=== PATIENT | female | born 1945 | race Caucasian/White ===

== ENCOUNTER 2017-09-16 11:50 | Inpatient (IN) ==
[2017-09-16 12:15] LABS: ABG Base Excess 22 mEq/L (-2 to 3); ABG HCO3 56 mEq/L (21-27); ABG Oxygen Saturation 95 % (95-98); ABG PCO2 131 mmHg (35-45); ABG PH 7.24 pH Units (7.32-7.45); ABG PO2 99 mmHg (85-104); ABG TCO2 60 mEq/L (20-26)
[2017-09-16] MEDS ORDERED: *HR* LORazepam 2 MG/ML VIAL IVP ONE (12:23)
--- NOTE | 2017-09-16 12:24 | Emergency Department Note ---
Disposition Clinical Impression: Congestive heart failure, Hypercapnia Disposition: Admitted As Inpatient Condition: Fair General Adult HPI - General Chief complaint: ED Shortness of Breath/Dyspnea Stated complaint: MEKHI x 2 days Time Seen by Provider: 09/16/17 11:51 Source: EMS Limitations: no limitations Nursing Notes Reviewed: Yes Vital Signs Reviewed: Yes - History of Present Illness Pain Scale: 0 - Related Data Home Medications Medication Instructions Recorded Confirmed Calcium Carbonate/Vitamin D3 2 tab PO DAILY 09/16/17 09/16/17 [Calcium 500 + Vit D 200 Caplet] Furosemide [Lasix] 40 - 80 mg PO DAILY 09/16/17 09/16/17 GlipiZIDE XL (24 HR) [Glucotrol XL] 2.5 mg PO 0800 PRN 09/16/17 09/16/17 Lisinopril 2.5 mg PO DAILY PRN 09/16/17 09/16/17 Metoprolol [Lopressor] 25 mg PO BID 09/16/17 09/16/17 Omeprazole [PriLOSEC] 20 mg PO DAILY 09/16/17 09/16/17 Potassium Chloride [K-Tab ER] 20 meq PO QAM 09/16/17 09/16/17 Rivaroxaban [Xarelto] 20 mg PO DAILY 09/16/17 09/16/17 Tramadol HCl [Ultram] 50 mg PO BID PRN 09/16/17 09/16/17 Allergies Allergy/AdvReac Type Severity Reaction Status Date / Time himalayan salt Allergy Swelling Uncoded 09/16/17 13:25 of Lip/Tongue/Throat Past Medical History - Past Medical History Medical history: Reports: COPD, diabetes, GERD, hyperlipidemia, hypertension, peripheral artery disease Psychiatric history: Reports: no psych history - Social History Smoking Status: Former smoker Smokeless Tobacco Status: No Alcohol use: Reports: none Drug use: Reports: none Physical Exam - General Limitations: no limitations General appearance: alert, in no apparent distress Course Vital Signs Temperature 98.1 F 09/16/17 11:54 Pulse Rate 83 09/16/17 11:54 Respiratory Rate 18 09/16/17 11:54 Blood Pressure 122/72 09/16/17 11:54 O2 Sat by Pulse Oximetry 94 09/16/17 11:54 Temperature 98 F 09/16/17 13:56 Pulse Rate 99 01/02/18 13:07 Respiratory Rate 18 09/16/17 13:56 Blood Pressure 126/71 09/16/17 13:56 O2 Sat by Pulse Oximetry 94 09/16/17 13:07 Oxygen Delivery Oxygen Delivery Bipap Medical Decision Making - MDM Narrative Medical decision making narrative: This documentation is done with the assistance of Dragon dictation. Despite efforts to ensure accuracy, there may be inaccuracies in sucker machine operator or spelling and typographical errors. I examined this patient and my medical decision-making was reviewed with the Resident Physician. I agree with the documented findings, disposition and treatment plan as described except to the extent set forth below. Patient seen and evaluated by Dr. Shakih and myself on arrival with EMS. I agree with his evaluation and management plan, supervised The patient's stay. She states that she has been getting increasing shortness of breath and having confusion per family. This happened in the past when her carbon dioxide levels elevated. She has a history of atrial fibrillation also denies any chest pain at this time. We will place her on BiPAP check labs and reassess. She will need admission. Chest X-Ray 09/16/17 11:51 IMPRESSION: Increased lung markings at the bilateral parahilar regions, may be related to bronchitis versus mild pulmonary vascular congestion. Mild cardiomegaly. D/ / Sae Paniagua MD / Sae Paniagua MD Interpreting Provider: Sae Paniagua MD 1320 hrs.: Family arrives and patient's much more comfortable with the BiPAP and being here. Admit her to the hospital. She is in agreement with plan. Spoke with hospitalist and he is accepted her to the service. Patient's critical care time excluding separately billable procedures is 45 minutes. - Lab Data Result diagrams: 09/16/17 12:39 09/16/17 12:39 Lab Results 09/16/17 09/16/17 09/16/17 Range/Units 12:05 12:39 12:39 WBC 6.5 (4.3-11.1) K/mcL RBC 3.66 L (3.82-4.97) M/mcL Hgb 10.7 L (11.5-15.4) g/dL Hct 37.8 (35.3-44.9) % MCV 103.3 H (83.0-100.0) fL MCH 29.2 (28.0-33.3) pg MCHC 28.3 L (31.6-35.5) g/dL RDW 12.3 (11.5-14.5) % Plt Count 135 L (140-400) K/mcL MPV 9.9 (9.4-12.4) fL Immature Gran % 0.2 (0-4) % Seg Neutrophils % 63.8 % Lymphocytes % 24.3 % Monocytes % 9.2 % Eosinophils % 1.7 % Basophils % 0.8 % Neutrophils # 4.2 (1.6-8.9) K/mcL Lymphocytes # 1.6 (0.6-4.6) K/mcL Monocytes # 0.6 (0.0-1.3) K/mcL Eosinophils # 0.1 (0.0-0.6) K/mcL Basophils # 0.1 (0.0-0.2) K/mcL Platelet Estimate Decreased L (Normal) Hypochromasia Present A (Not Present) PT (9.4-12.1) Seconds INR APTT (26.0-36.0) Seconds ABG pH 7.24 L (7.32-7.45) pH Units ABG pCO2 131 H* (35-45) mmHg ABG pO2 99 (85-104) mmHg ABG HCO3 56 H (21-27) mEq/L ABG Total CO2 60 H (20-26) mEq/L ABG O2 Saturation 95 (95-98) % ABG Base Excess 22 H (-2 to 3) mEq/L O2 Delivery Device Cannula Inspired O2 30.0 (1-15=lpm et38-433=%) Sodium 141 (136-145) mEq/L Potassium 4.1 (3.5-5.1) mEq/L Chloride 90 L (98-107) mEq/L Carbon Dioxide > 45 H* (23-29) mEq/L BUN 20 (8-23) mg/dL Creatinine 0.51 L (0.60-1.20) mg/dL Est GFR ( Amer) > 60 (> 60) Est GFR (Non-Af Amer) > 60 (> 60) BUN/Creatinine Ratio 39 H (6-26) Glucose 104 (70-105) mg/dL Calculated Osmolality 295 (280-300) Calcium 9.9 (8.6-10.3) mg/dL Troponin I (< 0.04) ng/mL B-Natriuretic Peptide (Less than 100) pg/mL Urine Color (Yellow) Urine Clarity (Clear) Urine pH (5.0-8.0) pH Units Ur Specific [place] (1.010-1.025) Urine Protein (Neg-Trace) mg/dL Urine Glucose (UA) (Normal) mg/dL Urine Ketones (Negative) mg/dL Urine Blood (Negative) Urine Nitrite (Negative) Urine Bilirubin (Negative) Urine Urobilinogen (Normal) mg/dL Ur Leukocyte Esterase (Negative) Urine Microscopic RBC (0-3) per hpf Urine Microscopic WBC (0-3) per hpf Ur Squamous Epith Cells (None-Few) per lpf Urine Bacteria (None-Few) per hpf Hyaline Casts (None-Few) per lpf Ur Culture Indicated? (NO) 09/16/17 09/16/17 09/16/17 Range/Units 12:39 12:39 12:39 WBC (4.3-11.1) K/mcL RBC (3.82-4.97) M/mcL Hgb (11.5-15.4) g/dL Hct (35.3-44.9) % MCV (83.0-100.0) fL MCH (28.0-33.3) pg MCHC (31.6-35.5) g/dL RDW (11.5-14.5) % Plt Count (140-400) K/mcL MPV (9.4-12.4) fL Immature Gran % (0-4) % Seg Neutrophils % % Lymphocytes % % Monocytes % % Eosinophils % % Basophils % % Neutrophils # (1.6-8.9) K/mcL Lymphocytes # (0.6-4.6) K/mcL Monocytes # (0.0-1.3) K/mcL Eosinophils # (0.0-0.6) K/mcL Basophils # (0.0-0.2) K/mcL Platelet Estimate (Normal) Hypochromasia (Not Present) PT 20.6 H (9.4-12.1) Seconds INR 1.9 APTT 42.6 H (26.0-36.0) Seconds ABG pH (7.32-7.45) pH Units ABG pCO2 (35-45) mmHg ABG pO2 (85-104) mmHg ABG HCO3 (21-27) mEq/L ABG Total CO2 (20-26) mEq/L ABG O2 Saturation (95-98) % ABG Base Excess (-2 to 3) mEq/L O2 Delivery Device Inspired O2 (1-15=lpm kd18-814=%) Sodium (136-145) mEq/L Potassium (3.5-5.1) mEq/L Chloride (98-107) mEq/L Carbon Dioxide (23-29) mEq/L BUN (8-23) mg/dL Creatinine (0.60-1.20) mg/dL Est GFR ( Amer) (> 60) Est GFR (Non-Af Amer) (> 60) BUN/Creatinine Ratio (6-26) Glucose (70-105) mg/dL Calculated Osmolality (280-300) Calcium (8.6-10.3) mg/dL Troponin I < 0.03 (< 0.04) ng/mL B-Natriuretic Peptide 224 H (Less than 100) pg/mL Urine Color (Yellow) Urine Clarity (Clear) Urine pH (5.0-8.0) pH Units Ur Specific [place] (1.010-1.025) Urine Protein (Neg-Trace) mg/dL Urine Glucose (UA) (Normal) mg/dL Urine Ketones (Negative) mg/dL Urine Blood (Negative) Urine Nitrite (Negative) Urine Bilirubin (Negative) Urine Urobilinogen (Normal) mg/dL Ur Leukocyte Esterase (Negative) Urine Microscopic RBC (0-3) per hpf Urine Microscopic WBC (0-3) per hpf Ur Squamous Epith Cells (None-Few) per lpf Urine Bacteria (None-Few) per hpf Hyaline Casts (None-Few) per lpf Ur Culture Indicated? (NO) 09/16/17 Range/Units 13:16 WBC (4.3-11.1) K/mcL RBC (3.82-4.97) M/mcL Hgb (11.5-15.4) g/dL Hct (35.3-44.9) % MCV (83.0-100.0) fL MCH (28.0-33.3) pg MCHC (31.6-35.5) g/dL RDW (11.5-14.5) % Plt Count (140-400) K/mcL MPV (9.4-12.4) fL Immature Gran % (0-4) % Seg Neutrophils % % Lymphocytes % % Monocytes % % Eosinophils % % Basophils % % Neutrophils # (1.6-8.9) K/mcL Lymphocytes # (0.6-4.6) K/mcL Monocytes # (0.0-1.3) K/mcL Eosinophils # (0.0-0.6) K/mcL Basophils # (0.0-0.2) K/mcL Platelet Estimate (Normal) Hypochromasia (Not Present) PT (9.4-12.1) Seconds INR APTT (26.0-36.0) Seconds ABG pH (7.32-7.45) pH Units ABG pCO2 (35-45) mmHg ABG pO2 (85-104) mmHg ABG HCO3 (21-27) mEq/L ABG Total CO2 (20-26) mEq/L ABG O2 Saturation (95-98) % ABG Base Excess (-2 to 3) mEq/L O2 Delivery Device Inspired O2 (1-15=lpm mn82-437=%) Sodium (136-145) mEq/L Potassium (3.5-5.1) mEq/L Chloride (98-107) mEq/L Carbon Dioxide (23-29) mEq/L BUN (8-23) mg/dL Creatinine (0.60-1.20) mg/dL Est GFR ( Amer) (> 60) Est GFR (Non-Af Amer) (> 60) BUN/Creatinine Ratio (6-26) Glucose (70-105) mg/dL Calculated Osmolality (280-300) Calcium (8.6-10.3) mg/dL Troponin I (< 0.04) ng/mL B-Natriuretic Peptide (Less than 100) pg/mL Urine Color Dark Yellow (Yellow) Urine Clarity Cloudy A (Clear) Urine pH 6.0 (5.0-8.0) pH Units Ur Specific [place] 1.024 (1.010-1.025) Urine Protein Trace (Neg-Trace) mg/dL Urine Glucose (UA) Normal (Normal) mg/dL Urine Ketones Negative (Negative) mg/dL Urine Blood Small H (Negative) Urine Nitrite Positive A (Negative) Urine Bilirubin Small H (Negative) Urine Urobilinogen Normal (Normal) mg/dL Ur Leukocyte Esterase Negative (Negative) Urine Microscopic RBC 5-15 H (0-3) per hpf Urine Microscopic WBC 0-3 (0-3) per hpf Ur Squamous Epith Cells Many H (None-Few) per lpf Urine Bacteria Many H (None-Few) per hpf Hyaline Casts None Seen (None-Few) per lpf Ur Culture Indicated? NO. (NO)
--- NOTE | 2017-09-16 12:29 | Emergency Department Note ---
Disposition Clinical Impression: Hypercapnia Congestive heart failure Qualifiers: Congestive heart failure type: unspecified congestive heart failure type Congestive heart failure chronicity: acute on chronic Qualified Code(s): I50.9 - Heart failure, unspecified Disposition: Admitted As Inpatient Condition: Fair Referrals: NONE,PCP [Primary Care Provider] - Forms: ED Satisfaction Letter Time of Disposition: 13:23 SOB HPI - General Chief Complaint: ED Shortness of Breath/Dyspnea Stated Complaint: MEKHI x 2 days Time Seen by Provider: 09/16/17 11:51 Source: EMS Mode of arrival: EMS Limitations: no limitations Nursing Notes Reviewed: Yes Vital Signs Reviewed: Yes - History of Present Illness Patient presents to the ED with chief complaint of shortness of breath. Patient arrives via EMS and was seen and evaluated upon arrival. According EMS , patient has had trouble breathing for the last few days, has a history of CHF and COPD. Reports she has not been taking her Lasix as prescribed lately. Also has a history of atrial fibrillation. Patient states she has some trouble breathing but otherwise is unable to answer any questions about her medical history. She states that they brought her to the wrong hospital and she normally goes to [facility] however, she is unable to provide us any relevant information. She states we should contact her daughter, but is unsure what her phone number is. - Related Data Allergies Allergy/AdvReac Type Severity Reaction Status Date / Time himalayan salt Allergy Swelling Uncoded 09/16/17 13:25 of Lip/Tongue/Throat Limitations: ROS unobtainable due to patients medical condition Respiratory: Reports: dyspnea Past Medical History - Past Medical History Attestation: Yes The following information was validated with the patient. Source: old records reviewed Medical history: Reports: COPD, diabetes, GERD, hyperlipidemia, hypertension, peripheral artery disease Psychiatric history: Reports: no psych history - Social History Smoking Status: Former smoker Smokeless Tobacco Status: No Alcohol use: Reports: none Drug use: Reports: none Physical Exam - General Limitations: no limitations General appearance: alert, in no apparent distress - Head Head exam: atraumatic, normocephalic, normal inspection - Eye Eye exam: Present: normal appearance, PERRL, EOMI - Neck Neck exam: Present: normal inspection, full ROM, trachea midline - Chest Chest inspection: Present: normal inspection, symmetric chest wall rise - Respiratory Respiratory exam: Present: respiratory distress, other (rales). Absent: normal lung sounds bilaterally, wheezes - Cardiovascular Cardiovascular exam: Present: regular rate, normal rhythm, normal heart sounds - Abdominal Exam Abdominal exam: Present: soft, Non-Tender. Absent: tenderness, distention, guarding, rebound, rigidity - Extremities Exam Extremities exam: Present: pedal edema - Neurological Exam Neurological exam: Present: alert. Absent: oriented X3 (to person and place but not time ) - Psychiatric Psychiatric exam: Present: anxious - Skin Skin exam: Present: warm, dry, intact, normal color Course Course Narrative: Patient presenting with shortness of breath. Has rales on exam peripheral edema concern over a CHF exacerbation. Somewhat confused, so likely has an elevated PCO2. We will get an ABG and go and placed on BiPAP. - Reevaluation(s) Reevaluation #1: PCO2 was quite high, which makes us think that she probably has chronic hypercapnia. She is still mentating fairly well for PCO2 that eye. She is doing much better on BiPAP in her mental status seems to be improving. We will admit her to the hospitalist service. Hospitalist service. Sheila for admission but did ask that we consult pulmonology due to her PCO2 and requiring BiPAP. I do not think she will need intubation. She is tolerating BiPAP well, but we will broaden give him a call and get her admitted. Pulm contacted. No further recommendations. WIll be happy to consult if needed. Patient remains stable. Vital Signs Temperature 98.1 F 09/16/17 11:54 Pulse Rate 83 09/16/17 11:54 Respiratory Rate 18 09/16/17 11:54 Blood Pressure 122/72 09/16/17 11:54 O2 Sat by Pulse Oximetry 94 09/16/17 11:54 Temperature 98.1 F 09/16/17 11:54 Pulse Rate 99 09/16/17 13:07 Respiratory Rate 18 09/16/17 13:07 Blood Pressure 125/91 09/16/17 13:07 O2 Sat by Pulse Oximetry 94 09/16/17 13:07 Oxygen Delivery Oxygen Delivery Bipap Shortness of Breath/Dyspnea - Medical Records Medical records reviewed: Yes I reviewed the patient's medical records. - Lab Data Lab results reviewed: Yes I reviewed the patient's lab results. Result diagrams: 09/16/17 12:39 09/16/17 12:39 Lab Results 09/16/17 09/16/17 09/16/17 Range/Units 12:05 12:39 12:39 WBC 6.5 (4.3-11.1) K/mcL RBC 3.66 L (3.82-4.97) M/mcL Hgb 10.7 L (11.5-15.4) g/dL Hct 37.8 (35.3-44.9) % MCV 103.3 H (83.0-100.0) fL MCH 29.2 (28.0-33.3) pg MCHC 28.3 L (31.6-35.5) g/dL RDW 12.3 (11.5-14.5) % Plt Count 135 L (140-400) K/mcL MPV 9.9 (9.4-12.4) fL Immature Gran % 0.2 (0-4) % Seg Neutrophils % 63.8 % Lymphocytes % 24.3 % Monocytes % 9.2 % Eosinophils % 1.7 % Basophils % 0.8 % Neutrophils # 4.2 (1.6-8.9) K/mcL Lymphocytes # 1.6 (0.6-4.6) K/mcL Monocytes # 0.6 (0.0-1.3) K/mcL Eosinophils # 0.1 (0.0-0.6) K/mcL Basophils # 0.1 (0.0-0.2) K/mcL Platelet Estimate Decreased L (Normal) Hypochromasia Present A (Not Present) PT (9.4-12.1) Seconds INR APTT (26.0-36.0) Seconds ABG pH 7.24 L (7.32-7.45) pH Units ABG pCO2 131 H* (35-45) mmHg ABG pO2 99 (85-104) mmHg ABG HCO3 56 H (21-27) mEq/L ABG Total CO2 60 H (20-26) mEq/L ABG O2 Saturation 95 (95-98) % ABG Base Excess 22 H (-2 to 3) mEq/L O2 Delivery Device Cannula Inspired O2 30.0 (1-15=lpm dh12-290=%) Sodium 141 (136-145) mEq/L Potassium 4.1 (3.5-5.1) mEq/L Chloride 90 L (98-107) mEq/L BUN 20 (8-23) mg/dL Creatinine 0.51 L (0.60-1.20) mg/dL Est GFR ( Amer) > 60 (> 60) Est GFR (Non-Af Amer) > 60 (> 60) BUN/Creatinine Ratio 39 H (6-26) Glucose 104 (70-105) mg/dL Calculated Osmolality 295 (280-300) Calcium 9.9 (8.6-10.3) mg/dL Troponin I (< 0.04) ng/mL B-Natriuretic Peptide (Less than 100) pg/mL 09/16/17 09/16/17 09/16/17 Range/Units 12:39 12:39 12:39 WBC (4.3-11.1) K/mcL RBC (3.82-4.97) M/mcL Hgb (11.5-15.4) g/dL Hct (35.3-44.9) % MCV (83.0-100.0) fL MCH (28.0-33.3) pg MCHC (31.6-35.5) g/dL RDW (11.5-14.5) % Plt Count (140-400) K/mcL MPV (9.4-12.4) fL Immature Gran % (0-4) % Seg Neutrophils % % Lymphocytes % % Monocytes % % Eosinophils % % Basophils % % Neutrophils # (1.6-8.9) K/mcL Lymphocytes # (0.6-4.6) K/mcL Monocytes # (0.0-1.3) K/mcL Eosinophils # (0.0-0.6) K/mcL Basophils # (0.0-0.2) K/mcL Platelet Estimate (Normal) Hypochromasia (Not Present) PT 20.6 H (9.4-12.1) Seconds INR 1.9 APTT 42.6 H (26.0-36.0) Seconds ABG pH (7.32-7.45) pH Units ABG pCO2 (35-45) mmHg ABG pO2 (85-104) mmHg ABG HCO3 (21-27) mEq/L ABG Total CO2 (20-26) mEq/L ABG O2 Saturation (95-98) % ABG Base Excess (-2 to 3) mEq/L O2 Delivery Device Inspired O2 (1-15=lpm qh10-244=%) Sodium (136-145) mEq/L Potassium (3.5-5.1) mEq/L Chloride (98-107) mEq/L BUN (8-23) mg/dL Creatinine (0.60-1.20) mg/dL Est GFR ( Amer) (> 60) Est GFR (Non-Af Amer) (> 60) BUN/Creatinine Ratio (6-26) Glucose (70-105) mg/dL Calculated Osmolality (280-300) Calcium (8.6-10.3) mg/dL Troponin I < 0.03 (< 0.04) ng/mL B-Natriuretic Peptide 224 H (Less than 100) pg/mL - Radiology Data Radiology results reviewed: Yes I reviewed the patient's radiology results. - EKG Data EKG attestation: Yes I reviewed and interpreted this EKG. EKG results narrative: A. fib, rate 89, QRS 102, QTC 401, normal axis, no acute ischemic changes Critical Care Time Critical Care Time: Yes Total Critical Care Time: 30 Attestation: Critical care performed: Time is exclusive of separately billable procedures. Time includes: direct patient care, patient reassessment, coordination of patient care, interpretation of data (laboratory data, radiology data, and respiratory data), review of patient's medical records, medical consultation and documentation of patient care. Procedures included in critical care time: Procedures excluded from critical care time:
[2017-09-16 12:48] LABS: Immature Granulocytes % 0.2 % (0-4)
[2017-09-16 12:49] LABS: Basophils # 0.1 K/mcL (0.0-0.2); Basophils % 0.8 %; Eosinophils # 0.1 K/mcL (0.0-0.6); Eosinophils % 1.7 %; Hematocrit 37.8 % (35.3-44.9); Hemoglobin 10.7 g/dL (11.5-15.4); Lymphocytes # 1.6 K/mcL (0.6-4.6); Lymphocytes % 24.3 %; Mean Corpuscular HGB Conc 28.3 g/dL (31.6-35.5); Mean Corpuscular Hemoglobin 29.2 pg (28.0-33.3); Mean Corpuscular Volume 103.3 fL (83.0-100.0); Mean Platelet Volume 9.9 fL (9.4-12.4); Monocytes # 0.6 K/mcL (0.0-1.3); Monocytes % 9.2 %; Neutrophils # 4.2 K/mcL (1.6-8.9); Platelet Count 135 K/mcL (140-400); Red Blood Count 3.66 M/mcL (3.82-4.97); Red Cell Distribution Width 12.3 % (11.5-14.5); Segmented Neutrophils % 63.8 %
[2017-09-16 13:04] LABS: Hypochromasia Present (Not Present); Platelet Estimate Decreased (Normal)
[2017-09-16 13:05] LABS: INR 1.9; Prothrombin Time 20.6 Seconds (9.4-12.1)
[2017-09-16 13:08] LABS: Activated Partial Thrombo Time 42.6 Seconds (26.0-36.0)
[2017-09-16 13:22] LABS: BUN/Creatinine Ratio 39 (6-26); Blood Urea Nitrogen 20 mg/dL (8-23); Calcium 9.9 mg/dL (8.6-10.3); Chloride 90 mEq/L (98-107); Glucose 104 mg/dL (70-105); Osmolality,Calculated 295 (280-300); Potassium 4.1 mEq/L (3.5-5.1); Sodium 141 mEq/L (136-145); eGFR For African Americans > 60 (> 60); eGFR For Non-African Americans > 60 (> 60)
[2017-09-16] MEDS ORDERED: Furosemide 40 MG/4 ML VIAL IVP ONE (13:25)
[2017-09-16 13:26] LABS: Bilirubin,Urine Small (Negative); Blood,Urine Small (Negative); Clarity,Urine Cloudy (Clear); Color,Urine Dark Yellow (Yellow); Glucose,Urine (UA) Normal (Normal); Ketones,Urine Negative (Negative); Leukocyte Esterase,Urine Negative (Negative); Nitrite,Urine Positive (Negative); Protein,Urine Trace mg/dL (Neg-Trace); Specific Gravity,Urine 1.024 (1.010-1.025); Urobilinogen,Urine Normal (Normal)
[2017-09-16 13:29] LABS: Bacteria,Urine Many per hpf (None-Few); Hyaline Casts,Urine None Seen per lpf (None-Few); Squamous Epithelial Cell,Urine Many per lpf (None-Few); WBC,Urine 0-3 per hpf (0-3)
[2017-09-16 13:32] LABS: Carbon Dioxide > 45 mEq/L (23-29)
[2017-09-16] MEDS ORDERED: *HR* HYDROcodone/Acet 5/325 mg TABLET PO PRN (15:06)
[2017-09-16] MEDS ORDERED: Ondansetron 4 MG/2 ML VIAL IVP PRN (15:06)
[2017-09-16] MEDS ORDERED: Naloxone 0.4 MG/ML INJ IVP PRN (15:06)
[2017-09-16] MEDS ORDERED: Acetaminophen 325 MG TABLET PO PRN (15:06)
[2017-09-16] MEDS ORDERED: Ipratropium/Albuterol Neb 3 ML IH PRN (15:16)
[2017-09-16] MEDS ORDERED: D5% in Water 1,000 ML IVC PRN (15:18)
[2017-09-16] MEDS ORDERED: Dextrose Gel 15 GM/37.5 ML TUBE PO PRN ×2 (15:18)
[2017-09-16] MEDS ORDERED: *HR* Dextrose 50 % in Water (Syg) 50 ML SYRINGE IVP PRN (15:18)
--- NOTE | 2017-09-16 15:27 | Internal Med History&Physical ---
<Olivier Zamora - Last Filed: 09/16/17 16:32> Date of Encounter: 09/16/17 Time of Encounter: 14:00 Assessment and Plan (1) Acute exacerbation of CHF (congestive heart failure) Status: Acute Acute exacerbation of CHF complicated by current COPD. BNP 224 on admission. Pt. reports acute SOB and dyspnea for the past three days as well as 1+ bilateral pitting edema of the LEs. On exam, pt. uses accessory muscles when breathing and there are diminished breath sounds bilaterally on auscultation. Pts. daughter reports pt. is supposed to take PO lasix 40 mg BID but is not always compliant. Pt. is also currently in Afib. There is familial hx of DVT and PE, so concern is for possible PE. Pt. currently on Xarelto d/t Afib. D- dimer ordered stat. Will consider CTA of chest/venous Dopplers of LEs if d- dimer is elevated. Continuous cardiac telemetry. BiPap ordered d/t current hypercapnia. Supplemental O2 w/titration and SpO2 monitoring. DuoNebs Q6 PRN. 1.5L daily fluid restriction. Will hold PO lasix and administer 40 mg IVP BID. Monitor I&O and daily weight. Pt. discussed w/Dr. Vega who agrees w/plan of care. Pt. is at high risk for further morbidity and respiratory/cardiac distress d/t current sx, hx of CHF and atrial fibrillation, and risk factors of HTN, HLD, COPD, and morbid obesity. Inpatient. Qualifiers: Congestive heart failure type: unspecified congestive heart failure type Qualified Code(s): I50.9 - Heart failure, unspecified (2) COPD (chronic obstructive pulmonary disease) Status: Acute Acute on chronic COPD which most likely played role in pts. current CHF exacerbation. Supplemental O2 and SpO2 monitoring. BiPap ordered d/t current hypercapnia. Solu-Medrol 40 mg IV push every 8. DuoNeb's every 6 when necessary. IVPB ceftriaxone 1000 mg daily and azithromycin 5 mg daily to cover bronchitis related to current COPD. 1-View CXR today shows increased lung markings at the bilateral perihilar regions which may be related to bronchitis versus mild pulmonary vascular congestion. Qualifiers: Qualified Code(s): J44.9 - Chronic obstructive pulmonary disease, unspecified (3) Hypercapnia Status: Acute Acute hypercapnia on admission. Pt. placed on BiPap which improved pts. O2 status and saturation. Monitor pts. respiratory status closely. Supplemental O2 w/titration and SpO2 monitoring. (4) Weakness Status: Acute Acute weakness r/t pts. current SOB and dyspnea for the past three days. Pts. daughter reports that the pt. lives w/her and is fairly independent w/use of walker. Falls/safety precautions ordered. PT/OT consults ordered to assess patient's ambulation strength, stability, and safety. (5) Diabetes Status: Chronic Hx of chronic diabetes controlled with oral hypoglycemic medications. Will hold patient's oral diabetes meds and administer low dose correction insulin sliding scale and hypoglycemic protocol. BG checks before meals and at bedtime. A1c in a.m. labs. Qualifiers: Diabetes mellitus type: type 2 Diabetes mellitus complication status: with unspecified complications Diabetes mellitus terminal operator insulin use: without terminal operator use Qualified Code(s): E11.8 - Type 2 diabetes mellitus with unspecified complications (6) GERD (gastroesophageal reflux disease) Status: Chronic Hx of chronic GERD. IVP Zofran 4 mg Q8 for N/V. Will continue pts. Prilosec. Qualifiers: Esophagitis presence: esophagitis presence not specified Qualified Code(s) : K21.9 - Gastro-esophageal reflux disease without esophagitis (7) HLD (hyperlipidemia) Status: Chronic Hx of chronic HLD but pt. is not currently taking statin. Lipid panel in a.m. labs. Will add Lipitor if warranted. Qualifiers: Hyperlipidemia type: pure hypercholesterolemia Qualified Code(s): E78.00 - Pure hypercholesterolemia, unspecified; E78.0 - Pure hypercholesterolemia (8) HTN (hypertension) Status: Chronic Hx of chronic HTN. Monitor pt. and VS. Continue pts. Atenolol. Will hold patient 's lisinopril due to daughter's report of it causing hypotension. Qualifiers: Hypertension type: essential hypertension Qualified Code(s): I10 - Essential (primary) hypertension (9) DVT prophylaxis Status: Acute Continue pts. Xarelto for DVT prophylaxis. PT/APTT in a.m. labs. Monitor pt. for signs of bleeding. Internal Medicine - H&P: HPI Chief complaint: SOB/Dyspnea Admitted From: Emergency Dept Plans for Post Hospital Care: Home History of present illness: Ms. Maldonado is a 72 year old female with medical hx of COPD, CHF, diabetes controlled with oral antihyperglycemic's, GERD, HLD, HTN, CAD, and osteoporosis reports from the ED with chief complaint of severe shortness of breath and dyspnea for the past 3 days. Patient's daughter reports patient has been more confused over the past 3 days and was hard to wake up yesterday. She states she could not wake her mother up today and once awake she had difficulty ambulating to the bathroom. Since daughter states her mother has been taking only 1 Lasix per day instead of the 2 as prescribed. Pt. is somnolent during examination and hard to rouse d/t lack of sleep for the past several nights according to her daughter. Pts. daughter who takes care of pt. denies recent illness, fever, chills, nausea, vomiting, chest pain, palpitations, changes in vision, abdominal pain, unusual bleeding, dizziness, lightheadedness, pre- syncope, or syncope. Past Med Surg Social Fam HX - Past Medical History Source: old records reviewed, obtained from family Medical history: COPD, diabetes, GERD, hyperlipidemia, hypertension, peripheral artery disease Psychiatric history: no psych history - Social History Smoking Status: Former smoker Packs per day: 1PPD Smokeless Tobacco Status: No Alcohol use: none Drug use: none Current living situation: Home, With Family Activity Level: Uses cane/walker Recent Out of Country Travel Within the Last 8 Weeks: No Exposure or Possible Exposure to Illness During Travel: No - Family History Sister Race: Family Member Ethnicity: Non- Living Status: Age at : 60 Cause of : PE Hx Family Cardiac Disorders: Yes (PE) Father Race: Family Member Ethnicity: Non- Living Status: Age at : 80 Cause of : Cancer (Type unknown) Hx Family Cancer: Yes (Type unknown) Mother Race: Family Member Ethnicity: Non- Living Status: Age at : 62 Cause of : Respiratory failure Brother Race: Family Member Ethnicity: Non- Living Status: Age at : 55 Cause of : PE Hx Family Cardiac Disorders: Yes (PE) Hx Family Respiratory Disorders: Yes (COPD) Internal Medicine - H&P: Meds Calcium Carbonate/Vitamin D3 [Calcium 500-Vit D3 200 Caplet] 2 tab PO DAILY 11/02 [History] Furosemide [Lasix] 40 - 80 mg PO DAILY 09/16/17 [History] GlipiZIDE XL (24 HR) [Glucotrol XL] 2.5 mg PO 0800 PRN 09/16/17 [History] Lisinopril 2.5 mg PO DAILY PRN 09/16/17 [History] Metoprolol [Lopressor] 25 mg PO BID 09/16/17 [History] Omeprazole [PriLOSEC] 20 mg PO DAILY 09/16/17 [History] Potassium Chloride [K-Tab ER] 20 meq PO QAM 09/16/17 [History] Rivaroxaban [Xarelto] 20 mg PO DAILY 09/16/17 [History] Tramadol HCl [Ultram] 50 mg PO BID PRN 09/16/17 [History] Amoxicillin/Clavulanate [Augmentin] 500 mg PO BIDWM #6 tablet 09/18/17 [Rx] Azithromycin [Zithromax] 500 mg PO Q24H #2 tablet 09/18/17 [Rx] predniSONE [Prednisone] 50 mg PO DAILY #3 tablet 09/18/17 [Rx] 3 Allergy/AdvReac Type Severity Reaction Status Date / Time himalayan salt Allergy Swelling Uncoded 09/16/17 13:25 of Lip/Tongue/Throat ROS unobtainable: due to mental status All Systems PM: A 10-system review of systems was performed and is negative for pertinent findings except as documented above in the HPI. - Constitutional Vitals: Temp Pulse Resp BP Pulse Ox 98 F 99 18 126/71 94 09/16/17 13:56 09/16/17 13:07 09/16/17 13:56 09/16/17 13:56 09/16/17 13:07 General appearance: Present: cooperative, A&O X 1, morbidly obese, severe distress (Respiratory) - Head Head exam: Present: atraumatic, normocephalic - Eye Eye exam: Present: PERRL, conjuntiva pink, sclera anicteric Pupils: Present: PERRL - ENT ENT exam: Present: normal exam - Neck Neck exam general surgery: Present: normal inspection - Respiratory Respiratory exam: Present: accessory muscle use, decreased breath sounds ( Bilaterally) - Cardiovascular Cardiovascular exam: Present: irregular rhythm (Atrial fibrillation) - GI/Abdominal GI/Abdominal exam: Present: normal bowel sounds, soft, no peritoneal signs. Absent: distended, tenderness - Rectal Rectal exam: Present: deferred - Additional comments: exam deferred. - Extremities Exam Extremities exam: Present: pedal edema (1+ bilateral pedal edema), warm, radial pulses palpable and symmetrical - Neurological Exam Neurological exam: Present: altered, CN II-XII intact, no focal deficits. Absent: pronater drift, facial droop, speech deficit - Skin Skin exam: Present: dry, intact Internal Med - H&P Results - Labs CBC & Chem 7: 09/16/17 12:39 09/16/17 12:39 - Diagnostic Studies Chest x-ray Additional comments: Impressions Chest X-Ray 09/16/17 11:51 IMPRESSION: Increased lung markings at the bilateral parahilar regions, may be related to bronchitis versus mild pulmonary vascular congestion. Mild cardiomegaly. D/ / Sae Paniagua MD / Sae Paniagua MD Interpreting Provider: Sae Paniagua MD <Suman Vega P - Last Filed: 09/27/17 11:31> Date of Encounter: 09/27/17 Assessment and Plan (1) Acute exacerbation of CHF (congestive heart failure) Status: Acute Qualifiers: Congestive heart failure type: unspecified congestive heart failure type Qualified Code(s): I50.9 - Heart failure, unspecified (2) COPD (chronic obstructive pulmonary disease) Status: Acute Qualifiers: COPD type: unspecified COPD Qualified Code(s): J44.9 - Chronic obstructive pulmonary disease, unspecified (3) Diabetes Status: Chronic Qualifiers: Diabetes mellitus type: type 2 Diabetes mellitus complication status: with unspecified complications Diabetes mellitus usp insulin use: without terminal operator use Qualified Code(s): E11.8 - Type 2 diabetes mellitus with unspecified complications (4) HLD (hyperlipidemia) Status: Chronic Qualifiers: Hyperlipidemia type: pure hypercholesterolemia Qualified Code(s): E78.00 - Pure hypercholesterolemia, unspecified; E78.0 - Pure hypercholesterolemia (5) HTN (hypertension) Status: Chronic Qualifiers: Hypertension type: essential hypertension Qualified Code(s): I10 - Essential (primary) hypertension (6) DVT (deep venous thrombosis) Status: Acute Qualifiers: DVT location: lower extremity Affected thrombotic vein of extremity: unspecified vein of extremity Chronicity: unspecified Laterality: unspecified laterality Qualified Code(s): I82.409 - Acute embolism and thrombosis of unspecified deep veins of unspecified lower extremity (7) DVT prophylaxis Status: Acute Internal Medicine - H&P: HPI History of present illness: Ms. Maldonado is a 72 year old female All Systems PM: A 10-system review of systems was performed and is negative for pertinent findings except as documented above in the HPI. - Constitutional Vitals: Temp Pulse Resp BP Pulse Ox 98.1 F 61 16 131/71 97 09/19/17 10:54 09/19/17 10:54 09/19/17 10:54 09/19/17 10:54 09/19/17 10:54 Internal Med - H&P Results - Labs CBC & Chem 7: 09/19/17 04:17 09/19/17 07:02 - Attending Attestation I examined this patient and my medical decision-making was reviewed with the Resident Physician/PLANT TENDER. I agree with the documented findings, disposition and treatment plan as described except to the extent set forth below.
[2017-09-16] MEDS: Azithromycin 500 MG in D5% in Water 250 ML IVPB SCH (16:39)
[2017-09-16] MEDS: cefTRIAXone 1,000 MG in Water for inj. (sterile) 20 ML 10 ML IVP SCH (16:39)
[2017-09-16] MEDS: MethylPREDNISolone 40 MG/ML VIAL IVP SCH ×2 (16:39→22:34)
[2017-09-16] MEDS: Insulin LISPRO 300 UNITS/3 ML VIAL SQ SCH ×2 (16:39→22:35)
[2017-09-16] MEDS: Furosemide 40 MG/4 ML VIAL IVP SCH (16:53)
[2017-09-16] MEDS: traMADol 50 MG TABLET PO PRN ×2 (18:02→23:07)
[2017-09-17 01:23] LABS: Basophils % 0.3 %; Hematocrit 38.3 % (35.3-44.9); Hemoglobin 11.3 g/dL (11.5-15.4); Immature Granulocytes % 0.3 % (0-4); Lymphocytes # 0.8 K/mcL (0.6-4.6); Lymphocytes % 11.5 %; Mean Corpuscular HGB Conc 29.5 g/dL (31.6-35.5); Mean Corpuscular Hemoglobin 29.9 pg (28.0-33.3); Mean Corpuscular Volume 101.3 fL (83.0-100.0); Mean Platelet Volume 10.7 fL (9.4-12.4); Monocytes # 0.2 K/mcL (0.0-1.3); Monocytes % 2.3 %; Neutrophils # 5.6 K/mcL (1.6-8.9); Platelet Count 150 K/mcL (140-400); Red Blood Count 3.78 M/mcL (3.82-4.97); Red Cell Distribution Width 12.2 % (11.5-14.5); Segmented Neutrophils % 85.6 %
[2017-09-17 01:27] LABS: INR 1.2; Prothrombin Time 12.6 Seconds (9.4-12.1)
[2017-09-17 01:30] LABS: Activated Partial Thrombo Time 34.3 Seconds (26.0-36.0)
[2017-09-17 01:55] LABS: Hemoglobin A1C 5.2 %
[2017-09-17 02:34] LABS: Alanine Aminotransferase 16 Units/L (7-52); Albumin 3.7 g/dL (3.5-5.7); Albumin/Globulin Ratio 1.4 (1.1-2.2); Alkaline Phosphatase 52 Units/L (34-104); Aspartate Amino Transferase 18 Units/L (13-39); BUN/Creatinine Ratio 33 (6-26); Bilirubin,Total 0.4 mg/dL (0.3-1.0); Blood Urea Nitrogen 19 mg/dL (8-23); Calcium 9.5 mg/dL (8.6-10.3); Chloride 84 mEq/L (98-107); Chol/HDL Ratio 3.4 (0-4.9); Cholesterol 154 mg/dL (< 200); Globulin 2.7 g/dL (2.4-3.5); Glucose 146 mg/dL (70-105); HDL Cholesterol 45 mg/dL (40-59); LDL Cholesterol,Calculated 99 mg/dL (0-99); Magnesium 1.9 mg/dL (1.6-2.6); Osmolality,Calculated 293 (280-300); Potassium 4.1 mEq/L (3.5-5.1); Sodium 139 mEq/L (136-145); Total Protein 6.4 g/dL (6.4-8.9); Triglycerides 48 mg/dL (< 150); eGFR For African Americans > 60 (> 60); eGFR For Non-African Americans > 60 (> 60)
[2017-09-17 03:26] LABS: Carbon Dioxide > 45 mEq/L (23-29)
[2017-09-17] MEDS ORDERED: traMADol 50 MG TABLET PO PRN (08:06)
[2017-09-17] MEDS: Insulin LISPRO 300 UNITS/3 ML VIAL SQ SCH ×4 (08:22→23:08)
[2017-09-17] MEDS: Furosemide 40 MG/4 ML VIAL IVP SCH ×2 (08:34→16:34)
[2017-09-17] MEDS: MethylPREDNISolone 40 MG/ML VIAL IVP SCH ×2 (08:34→16:34)
[2017-09-17] MEDS: Cholecalciferol (D-3) 1,000 UNIT TABLET PO SCH (08:34)
[2017-09-17] MEDS: cefTRIAXone 1,000 MG in Water for inj. (sterile) 20 ML 10 ML IVP SCH (08:34)
[2017-09-17] MEDS: *HR* Rivaroxaban 10 MG TABLET PO SCH (16:34)
[2017-09-17] MEDS: Azithromycin 500 MG in D5% in Water 250 ML IVPB SCH (16:35)
--- NOTE | 2017-09-17 16:44 | Internal Med Progress Note ---
Date of Encounter: 09/17/17 Time of Encounter: 16:41 - Assessment and plan (1) Acute exacerbation of CHF (congestive heart failure) Current Visit: Yes Status: Acute Assessment and plan: Patient is admitted with the acute exacerbation of CHF. Today she is much improved as compared with yesterday. She is sitting up in a chair and talking in a complete sentences. Plan: We will continue present management. We will monitor intake and output very closely. Likely home in next 1-2 days. Qualifiers: Congestive heart failure type: unspecified congestive heart failure type Qualified Code(s): I50.9 - Heart failure, unspecified (2) COPD (chronic obstructive pulmonary disease) Current Visit: Yes Status: Acute Assessment and plan: Has a exacerbation of COPD which has turned into the exacerbation of her underlying congestive heart failure. Patient is presently on antibiotics/steroid/bronchiolitis. Will continue same. Home in 1-2 days. Qualifiers: COPD type: unspecified COPD Qualified Code(s): J44.9 - Chronic obstructive pulmonary disease, unspecified (3) Diabetes Current Visit: Yes Status: Chronic Assessment and plan: Within acceptable range Qualifiers: Diabetes mellitus type: type 2 Diabetes mellitus complication status: with unspecified complications Diabetes mellitus [facility] insulin use: without [facility] use Qualified Code(s): E11.8 - Type 2 diabetes mellitus with unspecified complications (4) HLD (hyperlipidemia) Current Visit: Yes Status: Chronic Qualifiers: Hyperlipidemia type: pure hypercholesterolemia Qualified Code(s): E78.00 - Pure hypercholesterolemia, unspecified; E78.0 - Pure hypercholesterolemia (5) HTN (hypertension) Current Visit: Yes Status: Chronic Assessment and plan: Within acceptable range Qualifiers: Hypertension type: essential hypertension Qualified Code(s): I10 - Essential (primary) hypertension (6) DVT (deep venous thrombosis) Current Visit: Yes Status: Acute Assessment and plan: On Xarelto Qualifiers: DVT location: lower extremity Affected thrombotic vein of extremity: unspecified vein of extremity Chronicity: unspecified Laterality: unspecified laterality Qualified Code(s): I82.409 - Acute embolism and thrombosis of unspecified deep veins of unspecified lower extremity (7) DVT prophylaxis Current Visit: Yes Status: Acute Assessment and plan: on xarelto - Subjective Interval history: Patient seen and examined. chart reviewed. Patient is comfortably sitting in a chair. patient denies chest pain, shortness of breath, nausea, vomiting, abdominal pain , diarrhea or dizziness. - Constitutional Vitals: Temp Pulse Resp BP Pulse Ox 98.1 F 103 18 134/79 95 09/17/17 16:34 09/17/17 16:34 09/17/17 16:34 09/17/17 16:34 09/17/17 16:34 General appearance: Present: cooperative, A&O X 1, morbidly obese, severe distress (Respiratory) - Head Head exam: Present: atraumatic, normocephalic - Eye Eye exam: Present: PERRL, conjuntiva pink, sclera anicteric Pupils: Present: PERRL - Neck Neck exam general surgery: Present: supple, trachea midline. Absent: lymphadenopathy - Respiratory Respiratory exam: Present: CTAB. Absent: accessory muscle use, rales, rhonchi, wheezes - Cardiovascular Cardiovascular exam: Present: RRR, +S1, +S2. Absent: diastolic murmur, gallop, rubs, systolic murmur - GI/Abdominal GI/Abdominal exam: Present: normal bowel sounds, soft, no peritoneal signs. Absent: distended, tenderness - Extremities Exam Extremities exam: Present: warm, radial pulses palpable and symmetrical. Absent : calf tenderness, cyanotic, pedal edema - Neurological Exam Neurological exam: Present: CN II-XII intact, oriented X3, no focal deficits. Absent: pronater drift, facial droop, speech deficit - Skin Skin exam: Present: dry, intact Internal Medicine: Result - Labs CBC & Chem 7: 09/17/17 00:45 09/17/17 00:45 Labs: Short CBC 09/17/17 Range/Units 00:45 WBC 6.5 (4.3-11.1) K/mcL Hgb 11.3 L (11.5-15.4) g/dL Hct 38.3 (35.3-44.9) % Plt Count 150 (140-400) K/mcL Neutrophils # 5.6 (1.6-8.9) K/mcL BMP 09/17/17 00:45 Sodium 139 Potassium 4.1 Chloride 84 L Carbon Dioxide > 45 H* BUN 19 Creatinine 0.57 L Glucose 146 H Calcium 9.5 Cardiac Enzymes 09/16/17 09/17/17 Range/Units 18:48 00:45 Troponin I < 0.03 < 0.03 (< 0.04) ng/mL Liver Function 09/17/17 Range/Units 00:45 Total Bilirubin 0.4 (0.3-1.0) mg/dL AST 18 (13-39) Units/L ALT 16 (7-52) Units/L Alkaline Phosphatase 52 (34-104) Units/L Albumin 3.7 (3.5-5.7) g/dL - ABG Interpretation ABG results: ABG ABG pH 7.24 pH Units (7.32-7.45) L 09/16/17 12:05 ABG pCO2 131 mmHg (35-45) H* 09/16/17 12:05 ABG pO2 99 mmHg (85-104) 09/16/17 12:05 ABG O2 Saturation 95 % (95-98) 09/16/17 12:05 PT/INR, D-dimer PT 12.6 Seconds (9.4-12.1) H 09/17/17 00:45 D-Dimer 249 ng/mLFEU (0-500) 09/16/17 16:37 Consult Discharge Plan - Plan Referrals: Ambrose Rose MD [Primary Care Provider] - (called at 1:45pm)
--- NOTE | 2017-09-17 16:53 | Electrocardiograph Report ---
[place] [id number] Test Date: 2017-09-16 Pat Name: Mariana Maldonado Department: 103 Room: 2A23 Gender: F Sleeve Tailor: [place]LTON : 1945 Requested By: Chele Dillon Order Number: [id number] Reading MD: Evelin Garcia Measurements Intervals [place] Rate: 89 P: GA: 0 QRS: 60 QRSD: 102 T: 17 QT: 355 QTc: 401 Interpretive Statements ATRIAL FIBRILLATION WITH ABERRANT CONDUCTION OR VENTRICULAR PREMATURE COMPLEXES NONSPECIFIC T-WAVE ABNORMALITY ABNORMAL RHYTHM ECG Electronically Signed On 09-17-2017 16:51:48 EST by Evelin Garcia
[2017-09-17] MEDS: *HR* HYDROcodone/Acet 5/325 mg TABLET PO PRN (21:02)
[2017-09-18] MEDS: MethylPREDNISolone 40 MG/ML VIAL IVP SCH ×3 (01:05→17:47)
[2017-09-18] MEDS: *HR* HYDROcodone/Acet 5/325 mg TABLET PO PRN ×2 (05:58→22:16)
[2017-09-18 07:09] LABS: Alanine Aminotransferase 13 Units/L (7-52); Albumin/Globulin Ratio 1.3 (1.1-2.2); Alkaline Phosphatase 50 Units/L (34-104); Aspartate Amino Transferase 16 Units/L (13-39); BUN/Creatinine Ratio 47 (6-26); Bilirubin,Total 0.5 mg/dL (0.3-1.0); Blood Urea Nitrogen 27 mg/dL (8-23); Calcium 9.8 mg/dL (8.6-10.3); Carbon Dioxide > 45 mEq/L (23-29); Chloride 86 mEq/L (98-107); Globulin 3.2 g/dL (2.4-3.5); Glucose 175 mg/dL (70-105); Osmolality,Calculated 295 (280-300); Potassium 4.2 mEq/L (3.5-5.1); Sodium 138 mEq/L (136-145); Total Protein 7.2 g/dL (6.4-8.9); eGFR For African Americans > 60 (> 60); eGFR For Non-African Americans > 60 (> 60)
[2017-09-18 07:35] LABS: Basophils % 0.2 %; Hematocrit 41.1 % (35.3-44.9); Hemoglobin 12.8 g/dL (11.5-15.4); Immature Granulocytes % 0.9 % (0-4); Immature Platelets 8.2 % (1.1-6.1); Lymphocytes # 1.3 K/mcL (0.6-4.6); Lymphocytes % 14.7 %; Mean Corpuscular HGB Conc 31.1 g/dL (31.6-35.5); Mean Corpuscular Hemoglobin 29.4 pg (28.0-33.3); Mean Corpuscular Volume 94.3 fL (83.0-100.0); Mean Platelet Volume 11.4 fL (9.4-12.4); Monocytes # 0.3 K/mcL (0.0-1.3); Monocytes % 3.4 %; Neutrophils # 7.2 K/mcL (1.6-8.9); Platelet Count 191 K/mcL (140-400); Red Blood Count 4.36 M/mcL (3.82-4.97); Red Cell Distribution Width 12.6 % (11.5-14.5); Segmented Neutrophils % 80.8 %
[2017-09-18] MEDS: Furosemide 40 MG/4 ML VIAL IVP SCH ×3 (08:15→17:47)
[2017-09-18] MEDS: Cholecalciferol (D-3) 1,000 UNIT TABLET PO SCH (08:15)
[2017-09-18] MEDS: cefTRIAXone 1,000 MG in Water for inj. (sterile) 20 ML 10 ML IVP SCH (08:15)
[2017-09-18] MEDS: Insulin LISPRO 300 UNITS/3 ML VIAL SQ SCH ×4 (08:16→21:00)
--- NOTE | 2017-09-18 15:52 | Discharge Summary ---
Date of Encounter: 09/27/17 Time of Encounter: 15:47 - Discharge Diagnosis (1) Acute exacerbation of CHF (congestive heart failure) Priority: Primary Status: Acute Qualifiers: Congestive heart failure type: unspecified Qualified Code(s): I50.9 - Heart failure, unspecified (2) COPD (chronic obstructive pulmonary disease) Priority: Primary Status: Acute Qualifiers: COPD type: unspecified COPD Qualified Code(s): J44.9 - Chronic obstructive pulmonary disease, unspecified (3) Diabetes Priority: Secondary Status: Chronic Qualifiers: Diabetes mellitus type: type 2 Diabetes mellitus complication status: with unspecified complications Diabetes mellitus care home insulin use: without supervisor intermediates use Qualified Code(s): E11.8 - Type 2 diabetes mellitus with unspecified complications (4) HLD (hyperlipidemia) Priority: Secondary Status: Chronic Qualifiers: Hyperlipidemia type: pure hypercholesterolemia Qualified Code(s): E78.00 - Pure hypercholesterolemia, unspecified; E78.0 - Pure hypercholesterolemia (5) HTN (hypertension) Priority: Secondary Status: Chronic Qualifiers: Hypertension type: essential hypertension Qualified Code(s): I10 - Essential (primary) hypertension (6) DVT (deep venous thrombosis) Priority: Secondary Status: Acute Qualifiers: DVT location: lower extremity Affected thrombotic vein of extremity: unspecified vein of extremity Chronicity: unspecified Laterality: unspecified laterality Qualified Code(s): I82.409 - Acute embolism and thrombosis of unspecified deep veins of unspecified lower extremity (7) DVT prophylaxis Priority: Secondary Status: Acute - Discharge Medications Prescriptions: Amoxicillin/Clavulanate [Augmentin] 500 mg PO BIDWM #6 tablet Azithromycin [Zithromax] 500 mg PO Q24H #2 tablet predniSONE [Prednisone] 50 mg PO DAILY #3 tablet Home Medications: Calcium Carbonate/Vitamin D3 [Calcium 500-Vit D3 200 Caplet] 2 tab PO DAILY 11/02 [History] Furosemide [Lasix] 40 - 80 mg PO DAILY 09/16/17 [History] GlipiZIDE XL (24 HR) [Glucotrol XL] 2.5 mg PO 0800 PRN 09/16/17 [History] Lisinopril 2.5 mg PO DAILY PRN 09/16/17 [History] Metoprolol [Lopressor] 25 mg PO BID 09/16/17 [History] Omeprazole [PriLOSEC] 20 mg PO DAILY 09/16/17 [History] Potassium Chloride [K-Tab ER] 20 meq PO QAM 09/16/17 [History] Rivaroxaban [Xarelto] 20 mg PO DAILY 09/16/17 [History] Tramadol HCl [Ultram] 50 mg PO BID PRN 09/16/17 [History] Amoxicillin/Clavulanate [Augmentin] 500 mg PO BIDWM #6 tablet 09/18/17 [Rx] Azithromycin [Zithromax] 500 mg PO Q24H #2 tablet 09/18/17 [Rx] predniSONE [Prednisone] 50 mg PO DAILY #3 tablet 09/18/17 [Rx] Allergies/Adverse Reactions: 3 Allergy/AdvReac Type Severity Reaction Status Date / Time himalayan salt Allergy Swelling Uncoded 09/16/17 13:25 of Lip/Tongue/Throat Date of admission: 09/16/17 16:49 Primary care physician: Ambrose Rose MD Discharging clinician: Suman Vega - Patient Status Disposition: Home, Self-Care Condition: Fair Functional capacity at discharge: independent ambulation Overall status at discharge: patient is progressing back to baseline - Discharge Instructions Follow Up With: Karthikeyan Wan MD [Partnered Physician] - 11/24/17 11:15 am Ambrose Rose MD [Primary Care Provider] - 09/24/17 12:00 pm () - Diet and Activity Activity: increase activity as tolerated Diet: diabetic diet Interval History: Ms. Maldonado is a 72 year old female with medical hx of COPD, CHF, diabetes controlled with oral antihyperglycemic's, GERD, HLD, HTN, CAD, and osteoporosis reports from the ED with chief complaint of severe shortness of breath and dyspnea for the past 3 days. Patient's daughter reports patient has been more confused over the past 3 days and was hard to wake up yesterday. She states she could not wake her mother up today and once awake she had difficulty ambulating to the bathroom. Since daughter states her mother has been taking only 1 Lasix per day instead of the 2 as prescribed. Pt. is somnolent during examination and hard to rouse d/t lack of sleep for the past several nights according to her daughter. Pts. daughter who takes care of pt. denies recent illness, fever, chills, nausea, vomiting, chest pain, palpitations, changes in vision, abdominal pain, unusual bleeding, dizziness, lightheadedness, pre- syncope, or syncope. Hospital course: Patient was hospitalized. She was started on BiPAP. She tolerated the BiPAP extremely well. She was given intravenous furosemide 40 mg twice a day. She had a good urine output with that. She also had underlying COPD exacerbation. She was started on antibiotics, steroids and bronchodilators. Patient responded well to the treatment. Today her saturation after 10 minutes walk was extremely good. Patient was seen by PT/OT. PT OT recommended home health/home physical therapy. Patient is requesting to go to the ECF/SNF Plan: Patient can go home today. Patient will get home health/home physical therapy. I am sending patient home with Augmentin/azithromycin along with oral steroids. Patient will follow up with necktie turner here. Patient will follow with primary care as outpatient. The time of discharge all QUESTIONS answered. - Time Spent with Patient Total time spent providing and/or coordinating discharge services: - Constitutional Vitals: Temp Pulse Resp BP Pulse Ox 98.2 F 70 18 114/61 96 09/18/17 10:38 09/18/17 10:38 09/18/17 10:38 09/18/17 10:38 09/18/17 10:38 General appearance: Present: cooperative, A&O X 1, morbidly obese, severe distress (Respiratory) - Head Head exam: Present: atraumatic, normocephalic - Eye Eye exam: Present: PERRL, conjuntiva pink, sclera anicteric Pupils: Present: PERRL - Neck Neck exam general surgery: Present: supple, trachea midline. Absent: lymphadenopathy - Respiratory Respiratory exam: Present: CTAB. Absent: accessory muscle use, rales, rhonchi, wheezes - Cardiovascular Cardiovascular exam: Present: RRR, +S1, +S2. Absent: diastolic murmur, gallop, rubs, systolic murmur - GI/Abdominal GI/Abdominal exam: Present: normal bowel sounds, soft, no peritoneal signs. Absent: distended, tenderness - Extremities Exam Extremities exam: Present: warm, radial pulses palpable and symmetrical. Absent : calf tenderness, cyanotic, pedal edema - Neurological Exam Neurological exam: Present: CN II-XII intact, oriented X3, no focal deficits. Absent: pronater drift, facial droop, speech deficit - Skin Skin exam: Present: dry, intact - VTE Documentation of Mechanical Device: Intermittent pneumatic compression device
[2017-09-18] MEDS: Azithromycin 250 MG TABLET PO SCH (16:45)
[2017-09-18] MEDS: *HR* Rivaroxaban 10 MG TABLET PO SCH (16:45)
[2017-09-19 04:42] LABS: Basophils % 0.1 %; Hematocrit 41.2 % (35.3-44.9); Hemoglobin 12.8 g/dL (11.5-15.4); Immature Granulocytes % 0.9 % (0-4); Lymphocytes % 20.9 %; Mean Corpuscular HGB Conc 31.1 g/dL (31.6-35.5); Mean Corpuscular Hemoglobin 29.5 pg (28.0-33.3); Mean Corpuscular Volume 94.9 fL (83.0-100.0); Mean Platelet Volume 11.3 fL (9.4-12.4); Monocytes # 0.6 K/mcL (0.0-1.3); Monocytes % 5.8 %; Neutrophils # 6.8 K/mcL (1.6-8.9); Platelet Count 201 K/mcL (140-400); Red Blood Count 4.34 M/mcL (3.82-4.97); Red Cell Distribution Width 12.7 % (11.5-14.5); Segmented Neutrophils % 72.3 %
[2017-09-19] MEDS: *HR* HYDROcodone/Acet 5/325 mg TABLET PO PRN ×2 (04:45→09:45)
[2017-09-19] MEDS: MethylPREDNISolone 40 MG/ML VIAL IVP SCH (05:53)
[2017-09-19] MEDS: Insulin LISPRO 300 UNITS/3 ML VIAL SQ SCH ×2 (07:56→11:44)
[2017-09-19] MEDS: Furosemide 40 MG/4 ML VIAL IVP SCH (07:57)
[2017-09-19] MEDS: cefTRIAXone 1,000 MG in Water for inj. (sterile) 20 ML 10 ML IVP SCH (07:57)
[2017-09-19] MEDS: Cholecalciferol (D-3) 1,000 UNIT TABLET PO SCH (07:57)
[2017-09-19 09:20] LABS: Alanine Aminotransferase 14 Units/L (7-52); Albumin/Globulin Ratio 1.2 (1.1-2.2); Alkaline Phosphatase 47 Units/L (34-104); Aspartate Amino Transferase 15 Units/L (13-39); BUN/Creatinine Ratio 61 (6-26); Bilirubin,Total 0.5 mg/dL (0.3-1.0); Blood Urea Nitrogen 36 mg/dL (8-23); Calcium 9.9 mg/dL (8.6-10.3); Carbon Dioxide 45 mEq/L (23-29); Chloride 89 mEq/L (98-107); Globulin 3.3 g/dL (2.4-3.5); Glucose 137 mg/dL (70-105); Osmolality,Calculated 304 (280-300); Potassium 3.8 mEq/L (3.5-5.1); Sodium 142 mEq/L (136-145); Total Protein 7.3 g/dL (6.4-8.9); eGFR For African Americans > 60 (> 60); eGFR For Non-African Americans > 60 (> 60)
[2017-09-19 10:56] VITALS: BP 131/71
--- NOTE | 2017-09-19 14:50 | Physician Discharge Referral ---
ExtendedCare Referral Info Transfer To: [facility] Institutional Level of Care: Skilled - Diagnosis (1) Acute exacerbation of CHF (congestive heart failure) Priority: Primary Status: Acute (2) COPD (chronic obstructive pulmonary disease) Priority: Primary Status: Acute (3) Diabetes Priority: Secondary Status: Chronic (4) HLD (hyperlipidemia) Priority: Secondary Status: Chronic (5) HTN (hypertension) Priority: Secondary Status: Chronic (6) DVT (deep venous thrombosis) Priority: Secondary Status: Acute (7) DVT prophylaxis Status: Acute - Transfer Medications Prescriptions: Amoxicillin/Clavulanate [Augmentin] 500 mg PO BIDWM #6 tablet Azithromycin [Zithromax] 500 mg PO Q24H #2 tablet predniSONE [Prednisone] 50 mg PO DAILY #3 tablet Home Medications: Calcium Carbonate/Vitamin D3 [Calcium 500-Vit D3 200 Caplet] 2 tab PO DAILY 11/02 [History] Furosemide [Lasix] 40 - 80 mg PO DAILY 09/16/17 [History] GlipiZIDE XL (24 HR) [Glucotrol XL] 2.5 mg PO 0800 PRN 09/16/17 [History] Lisinopril 2.5 mg PO DAILY PRN 09/16/17 [History] Metoprolol [Lopressor] 25 mg PO BID 09/16/17 [History] Omeprazole [PriLOSEC] 20 mg PO DAILY 09/16/17 [History] Potassium Chloride [K-Tab ER] 20 meq PO QAM 09/16/17 [History] Rivaroxaban [Xarelto] 20 mg PO DAILY 09/16/17 [History] Tramadol HCl [Ultram] 50 mg PO BID PRN 09/16/17 [History] Amoxicillin/Clavulanate [Augmentin] 500 mg PO BIDWM #6 tablet 09/18/17 [Rx] Azithromycin [Zithromax] 500 mg PO Q24H #2 tablet 09/18/17 [Rx] predniSONE [Prednisone] 50 mg PO DAILY #3 tablet 09/18/17 [Rx] Allergies/Adverse Reactions: 3 Allergy/AdvReac Type Severity Reaction Status Date / Time himalayan salt Allergy Swelling Uncoded 09/16/17 13:25 of Lip/Tongue/Throat - Respiratory Orders Smoking Cessation: Smoking cessation has been advised. For more information, call the [employer] Tobacco Quit Line at 6-837-IJLK-NOW. - Rehabiliation Orders Rehab Orders: Evaluation for Physical Therapy, Evaluation for Occupational Therapy CERTIFICATION: I certify that the transfer of the above named patient to an Extended Care Facility is necessary for the continuing treatment of the diagnosis listed. The above information is true and accurate reflection of patient's current condition. Confidential - Redisclosure prohibited without a patient's written consent.
[2017-09-19] MEDS: Azithromycin 250 MG TABLET PO SCH (15:28)
== END 2017-09-19 16:39 | disposition home or self-care (01) | DRG 292 ==
LOC: EMEROO 11:50 → 2NENU 11:50 → 2ANU 16:28
PROVIDERS: ADMIT Internal Medicine; ATTEND Internal Medicine